=== PATIENT | female | born 2000 | race Caucasian/White ===

== ENCOUNTER 2020-12-03 06:25 | Inpatient (IN) ==
[2020-12-03] MEDS ORDERED: PITOCIN ONE ×2 (06:35→12:18)
[2020-12-03] MEDS ORDERED: D5 1/2 NS 1000 ML 1,000 ML IV ONE (06:35)
[2020-12-03] MEDS ORDERED: BETADINE SOLN ONE (06:35)
[2020-12-03] MEDS ORDERED: D5LR 1L W PITOCIN 10 UNITS/L 10 UNITS/1,000 ML BAG IV ONE (06:36)
[2020-12-03] MEDS ORDERED: D5 1/2 NS 1L W PITOCIN 20 UNITS/L 20 UNITS/1,000 ML BAG IV ONE ×2 (06:36→19:11)
[2020-12-03] MEDS: D5 1/2 NS 1000 ML 1,000 ML IV SCH ×2 (07:00→18:27)
[2020-12-03] MEDS ORDERED: D5LR 1L W PITOCIN 10 UNITS/L 10 UNITS/1,000 ML BAG IV PRN (08:04)
[2020-12-03] MEDS ORDERED: PHENERGAN INJ 25 MG IM PRN ×3 (08:04→19:32)
[2020-12-03] MEDS ORDERED: PITOCIN IVP ONE (08:04)
[2020-12-03] MEDS ORDERED: MORPHINE SULFATE INJ 2 MG INJ IVP PRN (08:04)
[2020-12-03] MEDS ORDERED: STADOL INJ IVP PRN (08:07)
[2020-12-03] MEDS ORDERED: REGLAN INJ 10 MG VIAL ONE ×2 (09:37→15:32)
[2020-12-03] MEDS: REGLAN INJ 10 MG VIAL IVP PRN ×2 (09:40→15:30)
[2020-12-03] MEDS ORDERED: LR 1000 ML IV 1,000 ML IV ONE ×2 (11:05→17:28)
[2020-12-03] MEDS ORDERED: NAROPIN EPIDURAL 0.2% 100 ML ONE (11:16)
[2020-12-03] MEDS ORDERED: FENTANYL INJ 100 mcg ONE (11:16)
[2020-12-03] MEDS ORDERED: DIPRIVAN VIAL ONE (12:18)
[2020-12-03] MEDS ORDERED: SUPRANE ONE (12:18)
[2020-12-03] MEDS ORDERED: QUELICIN (OR ANECTINE) ONE (12:18)
[2020-12-03] MEDS ORDERED: ZOFRAN INJ 4 MG VIAL ONE (12:18)
[2020-12-03] MEDS ORDERED: XYLOCAINE 1 % (PLAIN) ONE (12:42)
[2020-12-03] MEDS ORDERED: MARCAINE 0.25% INJ ONE (16:56)
[2020-12-03] MEDS ORDERED: XYLOCAINE 2% and EPINEPHRINE 1:100,000 ONE (17:24)
[2020-12-03] MEDS ORDERED: ANCEF 1 GRAM IV PREMIX* 2 G/100 ML BAG IV ONE (17:28)
[2020-12-03] MEDS ORDERED: BICITRA 30 ML PO ONE (17:31)
[2020-12-03] MEDS ORDERED: FENTANYL INJ 250 mcg ONE (17:46)
[2020-12-03] MEDS ORDERED: HEMABATE IM ONE (18:11)
[2020-12-03] MEDS ORDERED: BENADRYL INJ 50 MG VIAL IVP PRN (19:07)
[2020-12-03] MEDS ORDERED: DILAUDID INJ IVP PRN (19:07)
[2020-12-03] MEDS ORDERED: REGLAN INJ 10 MG VIAL IVP PRN (19:07)
[2020-12-03] MEDS ORDERED: ZOFRAN INJ 4 MG VIAL IVP PRN ×2 (19:07→19:32)
[2020-12-03] MEDS ORDERED: D5 1/2 NS 1000 ML 1,000 ML with PITOCIN 20 UNITS IV SCH ×2 (19:32)
[2020-12-03] MEDS ORDERED: MYLICON TAB 80 MG CHEW PO PRN (19:32)
[2020-12-03] MEDS: TORADOL 30 MG VIAL IVP SCH (20:05)
[2020-12-03] MEDS: MOTRIN TAB 800 MG PO PRN (23:10)
[2020-12-04] MEDS: PERCOCET TAB 5/325 MG PO PRN ×3 (00:50→09:33)
[2020-12-04] MEDS: TORADOL 30 MG VIAL IVP SCH ×4 (02:32→23:45)
[2020-12-04 06:44] LABS: HEMATOCRIT 25.8 % (36.0-47.0); HEMOGLOBIN 8.2 g/dL (12.0-16.0)
--- NOTE | 2020-12-04 08:09 | NOTE.PROBC ---
Progress Note OB-C/S Subjective Data Subjective: No complaints, decreased lochia. Tolerating liquid diet. No N/V. Ambulating well. Gray draining well. Pain under good control with toradol. Objective Data Result Diagrams: 12/04/20 06:16 Objective Data: CV= RRR no MRG Lungs=CTA Bilaterally Abd=(+) BS, soft, ND, appropriately tender near incision. Bandage removed. Incision clean/dry/intact, no erythema, no bleeding, no discharge. Dermabond/Sti tches intact. Fundus firm/NT/ at 2 cm below umbilicus. Ext= No edema, NT, No Cords. Graduated Compression Stockings/Sequential Compression Devices Bilaterally. Assessment Assessment: healing well Plan (1) Postcesarean section: Plan: routine recovery and expect d/c tomorrow
[2020-12-04] MEDS: PRENATAL PLUS PO SCH (09:33)
[2020-12-04] MEDS: MOTRIN TAB 800 MG PO PRN (22:15)
[2020-12-05] MEDS: TORADOL 30 MG VIAL IVP SCH ×2 (01:50→09:27)
--- NOTE | 2020-12-05 07:19 | NOTE.PROBC ---
Progress Note OB-C/S Subjective Data Subjective: No complaints, decreased lochia. Tolerating regular diet. No N/V. Ambulating well. Gray draining well. Pain under good control with toradol. Objective Data Result Diagrams: 12/04/20 06:16 Objective Data: CV= RRR no MRG Lungs=CTA Bilaterally Abd=(+) BS, soft, ND, appropriately tender near incision. Bandage removed. Incision clean/dry/intact, no erythema, no bleeding, no discharge. Dermabond/St itches intact. Fundus firm/NT/ at 3 cm below umbilicus. Ext= No edema, NT, No Cords. Graduated Compression Stockings/Sequential Compression Devices Bilaterally. Plan (1) Postcesarean section: Plan: d/c home
[2020-12-05] MEDS: PRENATAL PLUS PO SCH (09:27)
[2020-12-05] MEDS: MOTRIN TAB 800 MG PO PRN (09:28)
[2020-12-05 12:47] VITALS: BP 125/82
== END 2020-12-05 13:35 | disposition home or self-care (01) | DRG 788 ==
LOC: LD 06:25 → MED/SURG 19:44
PROVIDERS: ADMIT Obstetrics & Gynecology; ATTEND Obstetrics & Gynecology
DX: Z3A.39 39 weeks gestation of pregnancy; Z37.0 Single live birth; O62.0 Primary inadequate contractions; O26.893 Other specified pregnancy related conditions, third trimester; O64.8XX0 Obstructed labor due to other malposition and malpresentation, not applicable or unspecified